=== PATIENT | female | born 1940 | race Caucasian/White ===

== ENCOUNTER 2017-12-31 16:34 | Inpatient (IN) | payer MEDICARE, MEDICAID ==
[~2017-12-31] VITALS: Ht 160 cm; Wt 75.4 kg
[2017-12-31 17:40] LABS: BASOPHILS % (AUTO) 0.3 % (0-1); EOSINOPHILS # (AUTO) 0.1 X10'3 (0-0.9); EOSINOPHILS % (AUTO) 1.3 % (0-6); HEMATOCRIT 37.1 % (35.0-45.0); HEMOGLOBIN 12.5 g/dl (12.0-16.0); LYMPHOCYTES # (AUTO) 1.2 X10'3 (1.1-4.8); LYMPHOCYTES % (AUTO) 16.5 % (21-51); MEAN CORPUSCULAR HEMOGLOBIN 31.9 PG (27.0-31.0); MEAN CORPUSCULAR HGB CONC 33.7 % (33.0-36.5); MEAN CORPUSCULAR VOLUME 94.8 FL (78-98); MEAN PLATELET VOLUME 8.4 FL (7.4-10.4); MONOCYTES # (AUTO) 0.7 X10'3 (0-0.9); MONOCYTES % (AUTO) 9.1 % (2-12); NEUTROPHILS # (AUTO) 5.3 X10'3 (1.8-7.7); NEUTROPHILS % (AUTO) 72.8 % (42-75); PLATELET COUNT 243 X10'3 (140-440); RED BLOOD COUNT 3.91 X10'6 (4.20-5.60); RED CELL DISTRIBUTION WIDTH 15.2 % (11.5-14.5); WHITE BLOOD COUNT 7.2 X10'3 (4.5-11.0)
[2017-12-31] MEDS ORDERED: furosemide 10 MG/1 ML 10ml inj IV ONE (17:40)
[2017-12-31] MEDS ORDERED: ipratropium/albuterol 3ml nebule NEB ONE (17:40)
[2017-12-31 17:50] LABS: PARTIAL THROMBOPLASTIN TIME 25 SECONDS (22-32); PROTHROMBIN TIME 10.8 SECONDS (9.0-12.0)
[2017-12-31 17:54] LABS: ALANINE AMINOTRANSFERASE 21 U/L (12-78); ALBUMIN 3.2 G/DL (3.4-5.0); ALBUMIN/GLOBULIN RATIO 0.8 (1.1-1.5); ALKALINE PHOSPHATASE 121 IU/L (46-116); ANION GAP 6 (8-16); ASPARTATE AMINO TRANSFERASE 18 U/L (10-37); BILIRUBIN,TOTAL 0.5 MG/DL (0.1-1.0); BLOOD UREA NITROGEN 8 MG/DL (7-18); BUN/CREATININE RATIO 7.6 (6.6-38.0); CALCIUM 8.7 MG/DL (8.5-10.1); CHLORIDE 96 MMOL/L (99-107); CREATININE 1.05 MG/DL (0.40-0.90); GLUCOSE 202 MG/DL (70-104); POTASSIUM 4.6 MMOL/L (3.5-5.1); SODIUM 133 MMOL/L (135-145); TOTAL CARBON DIOXIDE 31.1 MMOL/L (24-32); TOTAL PROTEIN 7.3 G/DL (6.4-8.2); eGFR 51 ML/MIN
[2017-12-31] MEDS ORDERED: POTA10TA PO (18:03)
[2017-12-31] MEDS ORDERED: FURO20TA4 PO (18:03)
[2017-12-31] MEDS ORDERED: LACT1CAP65 PO (18:03)
[2017-12-31] MEDS ORDERED: DILT120C10 PO (18:03)
[2017-12-31] MEDS ORDERED: SELE200T25 PO (18:03)
[2017-12-31] MEDS ORDERED: COPP2TAB PO (18:03)
[2017-12-31 18:09] LABS: CLARITY,URINE CLEAR (Clear); COLOR,URINE YELLOW (Yellow); GLUCOSE, URINE NEGATIVE (Neg); KETONES,URINE NEGATIVE (Neg); LEUKOCYTE ESTERASE ,URINE NEGATIVE (Neg); NITRITES, URINE NEGATIVE (Neg); OCCULT BLOOD,URINE NEGATIVE (Neg); PH,URINE 6.5 (4.8-8.0); PROTEIN,URINE NEGATIVE (Neg); UA COLLECTION TYPE CLN CATCH MIDSTREAM
[2017-12-31] MEDS ORDERED: acetaminophen 325mg tablet PO ONE (22:55)
[2018-01-01] VITALS (9 sets, daily range): BP systolic 96–126; BP diastolic 49–86
[2018-01-01] MEDS ORDERED: acetaminophen 325mg tablet PO PRN (01:25)
[2018-01-01] MEDS ORDERED: ondansetron/PF 4mg/2ml inj IV PRN (01:25)
[2018-01-01] MEDS ORDERED: mag hydrox/Alum hydrox/simeth 30ml oral suspension PO PRN (01:25)
[2018-01-01] MEDS ORDERED: magnesium hydroxide 30ml (MOM) UD suspension PO PRN (01:25)
[2018-01-01] MEDS ORDERED: potassium Cl 20 mEq SR tablet PO SCH (01:30)
[2018-01-01] MEDS ORDERED: diltiazem CD 120mg capsule (once-daily) PO SCH (08:00)
[2018-01-01] MEDS: heparin, porcine 5000 units/ml vial SQ SCH ×2 (08:53→20:55)
[2018-01-01] MEDS: potassium chloride 10mEq ER tablet PO SCH (08:54)
[2018-01-01] MEDS: furosemide 10 MG/1 ML 10ml inj IV SCH ×2 (08:54→20:57)
[2018-01-01] MEDS: DOBUTamine-DoBUTrex 500mg/D5W 250 ML IV SCH (10:20)
[2018-01-01] MEDS: HYDROcodone/acetaminophen 5mg/325mg tablet PO PRN (18:48)
[2018-01-01] MEDS: carvedilol 6.25mg tablet PO SCH (20:54)
[2018-01-01] MEDS: lisinopril 5mg tablet PO SCH (21:00)
[2018-01-02] VITALS (18 sets, daily range): BP systolic 109–160; BP diastolic 51–85
[2018-01-02 06:41] LABS: BASOPHILS % (AUTO) 0.5 % (0-1); EOSINOPHILS # (AUTO) 0.1 X10'3 (0-0.9); EOSINOPHILS % (AUTO) 1.4 % (0-6); HEMATOCRIT 35.8 % (35.0-45.0); HEMOGLOBIN 11.9 g/dl (12.0-16.0); LYMPHOCYTES # (AUTO) 0.9 X10'3 (1.1-4.8); LYMPHOCYTES % (AUTO) 18.8 % (21-51); MEAN CORPUSCULAR HEMOGLOBIN 31.5 PG (27.0-31.0); MEAN CORPUSCULAR HGB CONC 33.2 % (33.0-36.5); MEAN PLATELET VOLUME 8.3 FL (7.4-10.4); MONOCYTES # (AUTO) 0.5 X10'3 (0-0.9); MONOCYTES % (AUTO) 10.9 % (2-12); NEUTROPHILS # (AUTO) 3.4 X10'3 (1.8-7.7); NEUTROPHILS % (AUTO) 68.4 % (42-75); PLATELET COUNT 219 X10'3 (140-440); RED BLOOD COUNT 3.77 X10'6 (4.20-5.60); RED CELL DISTRIBUTION WIDTH 14.9 % (11.5-14.5)
[2018-01-02 07:09] LABS: ALANINE AMINOTRANSFERASE 18 U/L (12-78); ALBUMIN 2.9 G/DL (3.4-5.0); ALBUMIN/GLOBULIN RATIO 0.9 (1.1-1.5); ALKALINE PHOSPHATASE 80 IU/L (46-116); ANION GAP 10 (8-16); ASPARTATE AMINO TRANSFERASE 14 U/L (10-37); BILIRUBIN,TOTAL 0.7 MG/DL (0.1-1.0); BLOOD UREA NITROGEN 8 MG/DL (7-18); BUN/CREATININE RATIO 10.7 (6.6-38.0); CALCIUM 8.8 MG/DL (8.5-10.1); CHLORIDE 96 MMOL/L (99-107); CREATININE 0.75 MG/DL (0.40-0.90); GLUCOSE 148 MG/DL (70-104); POTASSIUM 3.5 MMOL/L (3.5-5.1); SODIUM 136 MMOL/L (135-145); TOTAL CARBON DIOXIDE 30.5 MMOL/L (24-32); TOTAL PROTEIN 6.3 G/DL (6.4-8.2); eGFR 75 ML/MIN
[2018-01-02] MEDS: furosemide 10 MG/1 ML 10ml inj IV SCH ×2 (07:44→20:00)
[2018-01-02] MEDS: heparin, porcine 5000 units/ml vial SQ SCH (07:45)
[2018-01-02] MEDS: potassium chloride 10mEq ER tablet PO SCH (07:45)
[2018-01-02] MEDS: carvedilol 6.25mg tablet PO SCH ×2 (07:45→20:01)
[2018-01-02] MEDS ORDERED: LORazepam 2 mg/ml vial IM PRN (09:35)
[2018-01-02] MEDS ORDERED: LORazepam 2 mg/ml vial IV PRN (11:00)
[2018-01-02] MEDS ORDERED: iohexol 350 MG/ML 50ML vial IV ONE (14:38)
[2018-01-02] MEDS ORDERED: iohexol 350MG/ML 100ml bottle IV ONE ×2 (14:38→17:10)
[2018-01-02] MEDS ORDERED: LIDOcaine 1%/PF (10mg/ml) 5ml vial ONE (14:38)
[2018-01-02] MEDS ORDERED: heparin 1,000unit/ml 10ml vial 10 ML ONE (14:38)
[2018-01-02] MEDS ORDERED: nitroGLYCERIN-Tridil 50MG/D5W 250 ML IV ONE (14:39)
[2018-01-02] MEDS: apixaban 5mg tablet PO SCH (20:00)
[2018-01-02] MEDS: HYDROcodone/acetaminophen 5mg/325mg tablet PO PRN (20:02)
[2018-01-02] MEDS: lisinopril 5mg tablet PO SCH (20:10)
[2018-01-02] MEDS: DOBUTamine-DoBUTrex 500mg/D5W 250 ML IV SCH (22:37)
[2018-01-03] VITALS (25 sets, daily range): BP systolic 63–124; BP diastolic 36–76
[2018-01-03] MEDS: HYDROcodone/acetaminophen 5mg/325mg tablet PO PRN ×3 (01:28→20:39)
[2018-01-03 05:34] LABS: BASOPHILS % (AUTO) 0.5 % (0-1); EOSINOPHILS # (AUTO) 0.1 X10'3 (0-0.9); EOSINOPHILS % (AUTO) 1.5 % (0-6); HEMATOCRIT 37.9 % (35.0-45.0); HEMOGLOBIN 12.6 g/dl (12.0-16.0); LYMPHOCYTES % (AUTO) 15.9 % (21-51); MEAN CORPUSCULAR HEMOGLOBIN 31.5 PG (27.0-31.0); MEAN CORPUSCULAR HGB CONC 33.3 % (33.0-36.5); MEAN CORPUSCULAR VOLUME 94.5 FL (78-98); MEAN PLATELET VOLUME 8.3 FL (7.4-10.4); MONOCYTES # (AUTO) 0.6 X10'3 (0-0.9); MONOCYTES % (AUTO) 8.5 % (2-12); NEUTROPHILS # (AUTO) 4.9 X10'3 (1.8-7.7); NEUTROPHILS % (AUTO) 73.6 % (42-75); PLATELET COUNT 243 X10'3 (140-440); RED BLOOD COUNT 4.01 X10'6 (4.20-5.60); RED CELL DISTRIBUTION WIDTH 14.7 % (11.5-14.5); WHITE BLOOD COUNT 6.6 X10'3 (4.5-11.0)
[2018-01-03 06:09] LABS: ALANINE AMINOTRANSFERASE 15 U/L (12-78); ALBUMIN 2.9 G/DL (3.4-5.0); ALBUMIN/GLOBULIN RATIO 0.8 (1.1-1.5); ALKALINE PHOSPHATASE 84 IU/L (46-116); ANION GAP 11 (8-16); ASPARTATE AMINO TRANSFERASE 15 U/L (10-37); BILIRUBIN,TOTAL 0.8 MG/DL (0.1-1.0); BLOOD UREA NITROGEN 8 MG/DL (7-18); BUN/CREATININE RATIO 10.4 (6.6-38.0); CHLORIDE 94 MMOL/L (99-107); CREATININE 0.77 MG/DL (0.40-0.90); GLUCOSE 142 MG/DL (70-104); POTASSIUM 3.5 MMOL/L (3.5-5.1); SODIUM 135 MMOL/L (135-145); TOTAL CARBON DIOXIDE 30.3 MMOL/L (24-32); TOTAL PROTEIN 6.6 G/DL (6.4-8.2); eGFR 73 ML/MIN
[2018-01-03] MEDS: apixaban 5mg tablet PO SCH ×2 (08:04→20:06)
[2018-01-03] MEDS: aspirin 81mg tab.chew PO SCH ×2 (08:05→08:30)
[2018-01-03] MEDS: carvedilol 6.25mg tablet PO SCH ×2 (08:05→20:00)
[2018-01-03] MEDS: potassium chloride 10mEq ER tablet PO SCH (08:05)
[2018-01-03] MEDS: furosemide 10 MG/1 ML 10ml inj IV SCH ×2 (08:06→20:00)
[2018-01-03 09:01] LABS: CHOL/HDL RATIO 3.2 (0.00-4.99); CHOLESTEROL 148 MG/DL (0-200); HDL CHOLESTEROL 46 MG/DL (35-60); LDL CHOLESTEROL 87 MG/DL (50-100); TRIGLYCERIDES 63 MG/DL (20-135)
[2018-01-03] MEDS ORDERED: magnesium Cl slow-release 64mg tablet PO PRN (18:05)
[2018-01-03] MEDS ORDERED: potassium Cl 20 mEq SR tablet PO PRN (18:05)
[2018-01-03] MEDS ORDERED: magnesium 4gm in 100ml NS 100 ML IV PRN (18:05)
[2018-01-03] MEDS ORDERED: potassium Cl 40MEQ/NS 500ml 500 ML IV PRN ×2 (18:05)
[2018-01-03] MEDS ORDERED: magnesium 2GM in 50ml NS 50 ML IV PRN (18:05)
[2018-01-03] MEDS: DOBUTamine-DoBUTrex 500mg/D5W 250 ML IV SCH (19:59)
[2018-01-03] MEDS: lisinopril 5mg tablet PO SCH (20:00)
[2018-01-04] VITALS (17 sets, daily range): BP systolic 97–137; BP diastolic 48–94
[2018-01-04] MEDS: DOBUTamine-DoBUTrex 500mg/D5W 250 ML IV SCH (03:52)
[2018-01-04] MEDS: HYDROcodone/acetaminophen 5mg/325mg tablet PO PRN (04:09)
[2018-01-04 05:42] LABS: BASOPHILS % (AUTO) 0.6 % (0-1); EOSINOPHILS # (AUTO) 0.1 X10'3 (0-0.9); EOSINOPHILS % (AUTO) 2.4 % (0-6); HEMATOCRIT 36.6 % (35.0-45.0); HEMOGLOBIN 12.4 g/dl (12.0-16.0); LYMPHOCYTES # (AUTO) 1.8 X10'3 (1.1-4.8); LYMPHOCYTES % (AUTO) 31.4 % (21-51); MEAN CORPUSCULAR HEMOGLOBIN 31.9 PG (27.0-31.0); MEAN CORPUSCULAR HGB CONC 33.8 % (33.0-36.5); MEAN CORPUSCULAR VOLUME 94.3 FL (78-98); MEAN PLATELET VOLUME 8.3 FL (7.4-10.4); MONOCYTES # (AUTO) 0.6 X10'3 (0-0.9); MONOCYTES % (AUTO) 10.7 % (2-12); NEUTROPHILS # (AUTO) 3.2 X10'3 (1.8-7.7); NEUTROPHILS % (AUTO) 54.9 % (42-75); PLATELET COUNT 238 X10'3 (140-440); RED BLOOD COUNT 3.88 X10'6 (4.20-5.60); RED CELL DISTRIBUTION WIDTH 14.9 % (11.5-14.5); WHITE BLOOD COUNT 5.9 X10'3 (4.5-11.0)
[2018-01-04 05:50] LABS: ISTAT HGB ART 12.9 g/dl (12.0-16.0); ISTAT Hct ART 38 %PCV (35-48); ISTAT Hct MIX 37 %PCV (35-48); ISTAT O2 SATURATION ARTERIAL 97 % (95-98); ISTAT O2 SATURATION MIX VENOUS 76 % (60-80); ISTAT SOURCE ART; ISTAT SOURCE MIX
[2018-01-04 05:59] LABS: ALANINE AMINOTRANSFERASE 21 U/L (12-78); ALBUMIN 3.1 G/DL (3.4-5.0); ALBUMIN/GLOBULIN RATIO 0.9 (1.1-1.5); ALKALINE PHOSPHATASE 81 IU/L (46-116); ANION GAP 8 (8-16); ASPARTATE AMINO TRANSFERASE 17 U/L (10-37); BILIRUBIN,TOTAL 0.7 MG/DL (0.1-1.0); BLOOD UREA NITROGEN 12 MG/DL (7-18); BUN/CREATININE RATIO 13.8 (6.6-38.0); CALCIUM 8.8 MG/DL (8.5-10.1); CHLORIDE 94 MMOL/L (99-107); CREATININE 0.87 MG/DL (0.40-0.90); GLUCOSE 133 MG/DL (70-104); MAGNESIUM 1.9 MG/DL (1.5-2.4); POTASSIUM 3.4 MMOL/L (3.5-5.1); SODIUM 135 MMOL/L (135-145); TOTAL CARBON DIOXIDE 32.6 MMOL/L (24-32); TOTAL PROTEIN 6.7 G/DL (6.4-8.2); eGFR 63 ML/MIN
[2018-01-04] MEDS: furosemide 10 MG/1 ML 10ml inj IV SCH ×2 (08:13→20:32)
[2018-01-04] MEDS: carvedilol 6.25mg tablet PO SCH ×2 (08:13→20:27)
[2018-01-04] MEDS: apixaban 5mg tablet PO SCH ×2 (08:13→20:26)
[2018-01-04] MEDS: aspirin 81mg tab.chew PO SCH (08:13)
[2018-01-04] MEDS: potassium chloride 10mEq ER tablet PO SCH (08:14)
[2018-01-04] MEDS: potassium Cl 20 mEq SR tablet PO PRN ×3 (08:16→18:45)
[2018-01-04] MEDS: oxyCODONE/APAP 5-325mg tablet PO PRN ×3 (15:44→21:47)
[2018-01-04] MEDS: lisinopril 5mg tablet PO SCH (20:26)
[2018-01-05] VITALS (15 sets, daily range): BP systolic 82–139; BP diastolic 38–84
[2018-01-05] MEDS: DOBUTamine-DoBUTrex 500mg/D5W 250 ML IV SCH ×2 (00:10→21:07)
[2018-01-05 05:45] LABS: BASOPHILS % (AUTO) 0.9 % (0-1); EOSINOPHILS # (AUTO) 0.1 X10'3 (0-0.9); EOSINOPHILS % (AUTO) 2.6 % (0-6); HEMATOCRIT 37.7 % (35.0-45.0); HEMOGLOBIN 12.5 g/dl (12.0-16.0); LYMPHOCYTES # (AUTO) 1.5 X10'3 (1.1-4.8); LYMPHOCYTES % (AUTO) 28.3 % (21-51); MEAN CORPUSCULAR HEMOGLOBIN 31.5 PG (27.0-31.0); MEAN CORPUSCULAR HGB CONC 33.2 % (33.0-36.5); MEAN CORPUSCULAR VOLUME 95.1 FL (78-98); MEAN PLATELET VOLUME 8.3 FL (7.4-10.4); MONOCYTES # (AUTO) 0.6 X10'3 (0-0.9); MONOCYTES % (AUTO) 10.6 % (2-12); NEUTROPHILS % (AUTO) 57.6 % (42-75); PLATELET COUNT 243 X10'3 (140-440); RED BLOOD COUNT 3.97 X10'6 (4.20-5.60); RED CELL DISTRIBUTION WIDTH 14.9 % (11.5-14.5); WHITE BLOOD COUNT 5.2 X10'3 (4.5-11.0)
[2018-01-05 06:27] LABS: ALANINE AMINOTRANSFERASE 30 U/L (12-78); ALBUMIN 3.2 G/DL (3.4-5.0); ALBUMIN/GLOBULIN RATIO 0.8 (1.1-1.5); ALKALINE PHOSPHATASE 78 IU/L (46-116); ANION GAP 6 (8-16); ASPARTATE AMINO TRANSFERASE 38 U/L (10-37); BILIRUBIN,TOTAL 0.6 MG/DL (0.1-1.0); BLOOD UREA NITROGEN 16 MG/DL (7-18); BUN/CREATININE RATIO 16.8 (6.6-38.0); CALCIUM 9.1 MG/DL (8.5-10.1); CHLORIDE 97 MMOL/L (99-107); CREATININE 0.95 MG/DL (0.40-0.90); GLUCOSE 137 MG/DL (70-104); SODIUM 137 MMOL/L (135-145); TOTAL CARBON DIOXIDE 34.2 MMOL/L (24-32); TOTAL PROTEIN 7.1 G/DL (6.4-8.2); eGFR 57 ML/MIN
[2018-01-05] MEDS: spironolactone 25 MG tablet PO SCH (07:47)
[2018-01-05] MEDS: aspirin 81mg tab.chew PO SCH (07:48)
[2018-01-05] MEDS: potassium chloride 10mEq ER tablet PO SCH (07:48)
[2018-01-05] MEDS: carvedilol 6.25mg tablet PO SCH (07:48)
[2018-01-05] MEDS: apixaban 5mg tablet PO SCH ×2 (07:48→19:59)
[2018-01-05] MEDS: furosemide 10 MG/1 ML 10ml inj IV SCH ×2 (07:49→19:59)
[2018-01-05] MEDS: oxyCODONE/APAP 5-325mg tablet PO PRN ×3 (07:59→19:59)
[2018-01-05] MEDS ORDERED: APIX5TAB3 PO (15:10)
[2018-01-05] MEDS ORDERED: FURO10VI51 IV (15:10)
[2018-01-06] VITALS (10 sets, daily range): BP systolic 94–132; BP diastolic 43–72
[2018-01-06] MEDS: oxyCODONE/APAP 5-325mg tablet PO PRN ×4 (03:17→23:05)
[2018-01-06 06:17] LABS: BASOPHILS % (AUTO) 0.8 % (0-1); EOSINOPHILS # (AUTO) 0.2 X10'3 (0-0.9); EOSINOPHILS % (AUTO) 3.7 % (0-6); HEMATOCRIT 35.9 % (35.0-45.0); HEMOGLOBIN 11.9 g/dl (12.0-16.0); LYMPHOCYTES # (AUTO) 1.6 X10'3 (1.1-4.8); MEAN CORPUSCULAR HEMOGLOBIN 31.3 PG (27.0-31.0); MEAN CORPUSCULAR HGB CONC 33.1 % (33.0-36.5); MEAN CORPUSCULAR VOLUME 94.6 FL (78-98); MEAN PLATELET VOLUME 8.4 FL (7.4-10.4); MONOCYTES # (AUTO) 0.6 X10'3 (0-0.9); NEUTROPHILS # (AUTO) 2.8 X10'3 (1.8-7.7); NEUTROPHILS % (AUTO) 53.5 % (42-75); PLATELET COUNT 221 X10'3 (140-440); RED BLOOD COUNT 3.79 X10'6 (4.20-5.60); RED CELL DISTRIBUTION WIDTH 14.9 % (11.5-14.5); WHITE BLOOD COUNT 5.3 X10'3 (4.5-11.0)
[2018-01-06 06:49] LABS: ALANINE AMINOTRANSFERASE 27 U/L (12-78); ALBUMIN/GLOBULIN RATIO 0.9 (1.1-1.5); ALKALINE PHOSPHATASE 70 IU/L (46-116); ANION GAP 9 (8-16); ASPARTATE AMINO TRANSFERASE 26 U/L (10-37); BILIRUBIN,TOTAL 0.6 MG/DL (0.1-1.0); BLOOD UREA NITROGEN 15 MG/DL (7-18); BUN/CREATININE RATIO 17.6 (6.6-38.0); CALCIUM 8.8 MG/DL (8.5-10.1); CHLORIDE 97 MMOL/L (99-107); CREATININE 0.85 MG/DL (0.40-0.90); GLUCOSE 141 MG/DL (70-104); MAGNESIUM 2.1 MG/DL (1.5-2.4); POTASSIUM 4.1 MMOL/L (3.5-5.1); SODIUM 138 MMOL/L (135-145); TOTAL CARBON DIOXIDE 32.2 MMOL/L (24-32); TOTAL PROTEIN 6.5 G/DL (6.4-8.2); eGFR 65 ML/MIN
[2018-01-06] MEDS: furosemide 10 MG/1 ML 10ml inj IV SCH ×3 (07:25→20:00)
[2018-01-06] MEDS: apixaban 5mg tablet PO SCH ×2 (07:27→19:58)
[2018-01-06] MEDS: potassium chloride 10mEq ER tablet PO SCH (07:27)
[2018-01-06] MEDS: aspirin 81mg tab.chew PO SCH (07:30)
[2018-01-06] MEDS: DOBUTamine-DoBUTrex 500mg/D5W 250 ML IV SCH (19:59)
[2018-01-07] VITALS (9 sets, daily range): BP systolic 106–145; BP diastolic 42–67
[2018-01-07 05:44] LABS: POTASSIUM 4.1 MMOL/L (3.5-5.1)
[2018-01-07] MEDS: aspirin 81mg tab.chew PO SCH (08:19)
[2018-01-07] MEDS: apixaban 5mg tablet PO SCH (08:19)
[2018-01-07] MEDS: potassium chloride 10mEq ER tablet PO SCH (08:19)
[2018-01-07] MEDS: carvedilol 6.25mg tablet PO SCH (08:22)
[2018-01-07] MEDS: spironolactone 25 MG tablet PO SCH (08:24)
[2018-01-07] MEDS: oxyCODONE/APAP 5-325mg tablet PO PRN ×2 (08:24→14:20)
[2018-01-07] MEDS: furosemide 10 MG/1 ML 10ml inj IV SCH (08:26)
[2018-01-07 14:54] LABS: BASOPHILS # (AUTO) 0.1 X10'3 (0-0.2); BASOPHILS % (AUTO) 0.9 % (0-1); EOSINOPHILS # (AUTO) 0.2 X10'3 (0-0.9); EOSINOPHILS % (AUTO) 2.6 % (0-6); HEMATOCRIT 37.6 % (35.0-45.0); HEMOGLOBIN 12.4 g/dl (12.0-16.0); LYMPHOCYTES # (AUTO) 1.8 X10'3 (1.1-4.8); LYMPHOCYTES % (AUTO) 30.1 % (21-51); MEAN CORPUSCULAR HEMOGLOBIN 31.2 PG (27.0-31.0); MEAN CORPUSCULAR HGB CONC 32.9 % (33.0-36.5); MEAN CORPUSCULAR VOLUME 94.8 FL (78-98); MEAN PLATELET VOLUME 8.1 FL (7.4-10.4); MONOCYTES # (AUTO) 0.5 X10'3 (0-0.9); MONOCYTES % (AUTO) 9.1 % (2-12); NEUTROPHILS # (AUTO) 3.4 X10'3 (1.8-7.7); NEUTROPHILS % (AUTO) 57.3 % (42-75); PLATELET COUNT 243 X10'3 (140-440); RED BLOOD COUNT 3.96 X10'6 (4.20-5.60); RED CELL DISTRIBUTION WIDTH 15.2 % (11.5-14.5); WHITE BLOOD COUNT 5.9 X10'3 (4.5-11.0)
[2018-01-07 14:58] LABS: ALBUMIN 3.2 G/DL (3.4-5.0); ANION GAP 6 (8-16); BLOOD UREA NITROGEN 15 MG/DL (7-18); BUN/CREATININE RATIO 12.6 (6.6-38.0); CALCIUM 8.8 MG/DL (8.5-10.1); CHLORIDE 98 MMOL/L (99-107); CREATININE 1.19 MG/DL (0.40-0.90); GLUCOSE 173 MG/DL (70-104); POTASSIUM 4.3 MMOL/L (3.5-5.1); SODIUM 138 MMOL/L (135-145); TOTAL CARBON DIOXIDE 33.6 MMOL/L (24-32); eGFR 44 ML/MIN
[2018-01-07] MEDS: DOBUTamine-DoBUTrex 500mg/D5W 250 ML IV SCH (16:29)
[2018-01-07] MEDS ORDERED: DOBUTamine-DoBUTrex 500mg/D5W 250 ML IV SCH (19:00)
== END 2018-01-07 19:00 | disposition short-term general hospital (02) | DRG 287 ==
LOC: ER 16:35 → ED HOLD 01-01 01:23 → PCU 3S 01-01 07:46
PROVIDERS: ADMIT Internal Medicine; ATTEND Legal Medicine
PROC: 4A023N8 Measurement of Cardiac Sampling and Pressure, Bilateral, Percutaneous Approach (ICD-10-PCS; principal; 2018-01-02)
PROC: B2131ZZ Fluoroscopy of Multiple Coronary Artery Bypass Grafts using Low Osmolar Contrast (ICD-10-PCS; 2018-01-02)
PROC: B2151ZZ Fluoroscopy of Left Heart using Low Osmolar Contrast (ICD-10-PCS; 2018-01-02)
PROC: B3101ZZ Fluoroscopy of Thoracic Aorta using Low Osmolar Contrast (ICD-10-PCS; 2018-01-02)
DX: I11.0 Hypertensive heart disease with heart failure (principal); I47.2 Ventricular tachycardia; I95.9 Hypotension, unspecified; I42.0 Dilated cardiomyopathy; I35.0 Nonrheumatic aortic (valve) stenosis; I48.2 Chronic atrial fibrillation; I50.23 Acute on chronic systolic (congestive) heart failure; E66.9 Obesity, unspecified; H91.90 Unspecified hearing loss, unspecified ear; I25.10 Atherosclerotic heart disease of native coronary artery without angina pectoris; Z88.2 Allergy status to sulfonamides; Z68.29 Body mass index [BMI] 29.0-29.9, adult; Z79.899 Other long term (current) drug therapy; Z87.730 Personal history of (corrected) cleft lip and palate; Z87.891 Personal history of nicotine dependence; Z98.41 Cataract extraction status, right eye; Z98.42 Cataract extraction status, left eye
CPT/HCPCS: 36415; 71045; 76604; 80048; 80053; 80061; 81003; 82803; 83735; 83880; 84132; 84484; 85014; 85025; 85610; 85730; 87070; 93005; 93306; 93460; 93567; 94640; 94760; 96374; 99285; A4620; A6213; A6251; A6257; A6446; A6449; C1760; C1769; J1250; J1644; J1940; J2001; J2060; J3490; J7030; Q9967